=== PATIENT | male | born 1955 | race Caucasian/White ===

== ENCOUNTER → 2016-06-10 | Outpatient (CLI) | payer OTHER ==
[~2016-06-10] MED LIST: IOPAMIDOL (ISOVUE-300) 50 ML VIAL IV ONE
--- NOTE | 2016-06-10 18:48 | CT ---
CT Scan of the Urinary Tract (Abdomen and Pelvis Without Contrast) Clinical Indications: Gross hematuria after falling. Technique: Multidetector helical CT imaging was performed from the kidneys to the urinary bladder wi thout contrast. Dose reduction techniques were utilized. Findings: Abdomen: No calcifications are found within the kidneys, ureters and bladder. No evidence of hydro nephrosis. Perirenal fat is not edematous. The visualized liver and spleen are normal in appearance . The gallbladder, pancreas and adrenals demonstrate no significant findings. The aorta tapers norm ally. A couple of calcifications are found within a slender appendix, with no edema whatsoever. Inter vertebral disks appear degenerated at L3-L4, L4-L5, and L5-S1, with bilateral facet arthropathy at th ose levels. 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 No compression fracture is identified. Pelvis: The prostate gland is somewhat enlarged, with no distention of the urinary bladder. Impression: 1. No evidence of stone in the urinary tract. 2. Enlarged prostate gland. 3. Disk degeneration and facet arthropathy of lower lumbar spine. Attention: This CT examination is specifically designed to evaluate patients who are clinically susp ected of having acute obstructive uropathy. This examination does not use radiographic contrast, and as such, provides only a limited evaluation of the abdomen, pelvis and retroperitoneum. If there i s further clinical suspicion for pathological conditions other than obstructive uropathy, a complete CT evaluation of the abdomen and pelvis utilizing intravenous, oral, and rectal contrast should be co nsidered. I telephoned results to Dr. Torres Briscoe at 1840 hours.
== END ==
LOC: FIMAGING 17:13
PROVIDERS: ATTEND Internal Medicine
DX: R31.0 Gross hematuria (principal); Z87.442 Personal history of urinary calculi; N40.0 Benign prostatic hyperplasia without lower urinary tract symptoms; W19.XXXA Unspecified fall, initial encounter; M51.36 Other intervertebral disc degeneration, lumbar region
CPT/HCPCS: Q9967

== ENCOUNTER 2017-04-23 17:21 | Emergency (ER) | payer OTHER ==
[2017-04-23 17:31] VITALS: TEMP 97.3
--- NOTE | 2017-04-23 17:51 | CPEKG ---
Heart Rate: 59 RR Interval: 1017 P-R Interval: 168 QRSD Interval: 100 QT Interval: 408 QTC Interval: 405 P Nedrow: -19 QRS Nedrow: 57 T Wave Nedrow: 19 EKG Severity - NORMAL ECG - EKG Impression: SINUS RHYTHM Electronically Signed By: Pastor Jacobo 23-Apr-2017 18:13:44
[2017-04-23] MEDS ORDERED: ONDANSETRON 4 MG/2 ML VIAL IVP ONE (18:07)
[2017-04-23] MEDS ORDERED: NS 1,000 ML IV ONE (18:07)
--- NOTE | 2017-04-23 18:12 | EDPHY ---
H & P Stated Complaint: FEELING DIZZY/NAUSEATED ALL DAY/TROUBLE WITH PLUGGED R EAR Time Seen by Provider: 04/23/17 17:48 HPI/ROS: CHIEF COMPLAINT: Woozy, left arm tingling HISTORY OF PRESENT ILLNESS: Patient is a 61-year-old obese man with history of hypertension who comes to the emergency department complaining that he is feeling woozy for the last month as well as having right ear fullness and slight nausea and then today developed some tingling in his left arm and bilateral face. 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 He tried wiggling his ear which made him vertiginous. He followed up with his primary who sent him to ENT. ENT he did not find anything abnormal. His symptoms seemed to decreased. He then had a left upper molar pulled a week later and was started on clindamycin. He took 4 doses but it made him extremely nauseous and vertiginous again. He stopped taking it. He has not had any fevers. He continued to have intermittent episodes of feeling woozy and lightheaded and having right ear pressure until today and he also developed some tingling in his left hand and face bilaterally. This does not have any history of cardiac disease. No focal weakness or numbness. REVIEW OF SYSTEMS: Constitutional: denies: chills, fever, recent illness, recent injury EENTM: denies: blurred vision, double vision, nose congestion Respiratory: denies: cough, shortness of breath Cardiac: See HPI Gastrointestinal/Abdominal: denies: abdominal pain, diarrhea, nausea, vomiting, blood streaked stools Genitourinary: denies: dysuria, frequency, hematuria, pain Musculoskeletal: denies: joint pain, muscle pain Skin: denies: lesions, rash, jaundice, bruising Neurological: denies: See HPI Hematologic/Lymphatic: denies: blood clots, easy bleeding, easy bruising Immunologic/allergic: denies: HIV/AIDS, transplant EXAM: GENERAL: Well-appearing, obese in no acute distress. HEAD: Atraumatic, normocephalic. EYES: Pupils equal round and reactive to light, extraocular movements intact, sclera anicteric, conjunctiva are normal. ENT: TMs normal, nares patent, oropharynx clear without exudates. Moist mucous membranes. NECK: Normal range of motion, supple without lymphadenopathy or JVD. LUNGS: Breath sounds clear to auscultation bilaterally and equal. No wheezes rales or rhonchi. HEART: Regular rate and rhythm without murmurs, rubs or gallops. ABDOMEN: Soft, nontender, normoactive bowel sounds. No guarding, no rebound. No masses appreciated. BACK: No CVA tenderness, no spinal tenderness, step-offs or deformities EXTREMITIES: Normal range of motion, no pitting or edema. No clubbing or cyanosis. NEUROLOGICAL: Cranial nerves II through XII grossly intact. Normal speech, normal gait. 5/5 strength, normal movement in all extremities, normal sensation PSYCH: Normal mood, normal affect. SKIN: Warm, dry, normal turgor, no visible rashes or lesions. Source: Patient Exam Limitations: No limitations - Personal History Current Tetanus/Diphtheria Vaccine: Yes - Medical/Surgical History Hx Asthma: No Hx Chronic Respiratory Disease: No Hx Diabetes: No Hx Cardiac Disease: No Hx Renal Disease: No Hx Cirrhosis: No Hx Alcoholism: No Hx HIV/AIDS: No Hx Splenectomy or Spleen Trauma: No Other PMH: HTN - Social History Smoking Status: Never smoked Alcohol Use: Sober Drug Use: None Constitutional: Initial Vital Signs Temperature (C) 36.3 C 04/23/17 17:29 Heart Rate 54 L 04/23/17 17:29 Respiratory Rate 18 04/23/17 17:29 Blood Pressure 156/89 H 04/23/17 17:29 O2 Sat (%) 95 04/23/17 17:29 O2 Delivery Mode Room Air Allergies/Adverse Reactions: lisinopril [Lisinopril] Allergy (Intermediate, Verified 04/23/17 17:28) Tingling of mouth/throat Home Medications: Medication Instructions Recorded Metoprolol Succinate 04/23/17 Omeprazole 04/23/17 Valsartan-Hctz 160-12.5 mg Tab 04/23/17 Medical Decision Making - Diagnostics EKG Interpretation: An EKG obtained and was read and documented in trace view. Please see trace view for full reading and report. Sinus rhythm, no acute ischemic changes Imaging Results: Imaging Impressions Head CT 04/23/17 18:07 Impression: CT head: 1. No acute abnormality. 2. Mild generalized volume loss. 3. Moderate supratentorial small vessel ischemic changes. CTAs: 1. No cervical or intracranial vascular abnormalities. Dr. Ace discussed these findings by telephone with Dr. JASON KIM on at 1935 hours. Chest X-Ray 04/23/17 18:08 Impression: 1. Suspect COPD without pneumonia. 2. Cardiomegaly without failure. Head CTA 04/23/17 18:12 Impression: CT head: 1. No acute abnormality. 2. Mild generalized volume loss. 3. Moderate supratentorial small vessel ischemic changes. CTAs: 1. No cervical or intracranial vascular abnormalities. Dr. Ace discussed these findings by telephone with Dr. JASON KIM on at 1935 hours. Neck CTA 04/23/17 18:12 Impression: CT head: 1. No acute abnormality. 2. Mild generalized volume loss. 3. Moderate supratentorial small vessel ischemic changes. CTAs: 1. No cervical or intracranial vascular abnormalities. Dr. Ace discussed these findings by telephone with Dr. JASON KIM on at 1935 hours. Imaging: Discussed imaging studies w/ gunite nozzle operator Radiologist ED Course/Re-evaluation: 7:50 p.m. the patient is feeling much better with hydration and medication. He feels ready to go home. I offered admission for further cardiac rule out. He declines. We agreed on a 4 hour repeat troponin. 10:50 p.m. the patient remains well. He continues to deny chest pain. He does still feels slightly woozy. He does feel better after hydration. He is eager to go home. He declines further workup or testing. I encouraged rest and hydration at home. We also discussed strict return precautions. Differential Diagnosis: Partial list of the Differential diagnosis considered include but were not limited to; viral syndrome acute coronary disease, dehydration and although unlikely based on the history and physical exam, I also considered meningitis, sepsis pneumonia, urinary tract infection, influenza, PE. I discussed these differential diagnoses and the plan with the patient as well as the usual and expected course. The patient understands that the diagnosis is provisional and that in medicine we are not always correct and that further workup is often warranted. Usual and customary warnings were given. All of the patient's questions were answered. The patient was instructed to return to the emergency department should the symptoms at all worsen or return, otherwise to followup with the physician as we discussed. - Data Points Laboratory Results: Laboratory Results 04/23/17 17:50 04/23/17 17:50 04/23/17 04/23/17 04/23/17 21:43 19:20 17:50 WBC RBC Hgb Hct MCV MCH MCHC RDW Plt Count MPV Neut % (Auto) Lymph % (Auto) Harney % (Auto) Eos % (Auto) Baso % (Auto) Nucleat RBC Rel Count Absolute Neuts (auto) Absolute Lymphs (auto) Absolute Monos (auto) Absolute Eos (auto) Absolute Basos (auto) Absolute Nucleated RBC Immature Gran % Immature Gran # PT INR APTT D-Dimer Sodium 133 mEq/L L mEq/L (134-144) Potassium 4.0 mEq/L mEq/L (3.5-5.2) Chloride 98 mEq/L mEq/L (97-110) Carbon Dioxide 24 mEq/l mEq/l (22-31) Anion Gap 11 mEq/L mEq/L (8-16) BUN 14 mg/dL mg/dL (7-23) Creatinine 0.7 mg/dL mg/dL (0.7-1.3) Estimated GFR > 60 Glucose 112 mg/dL H mg/dL (70-100) Calcium 9.2 mg/dL mg/dL (8.5-10.4) Total Bilirubin 0.5 mg/dL mg/dL (0.1-1.4) Conjugated Bilirubin 0.1 mg/dL mg/dL (0.0-0.5) Unconjugated Bilirubin 0.4 mg/dL mg/dL (0.0-1.1) AST 29 IU/L IU/L (17-59) ALT 41 IU/L IU/L (21-72) Alkaline Phosphatase 45 IU/L IU/L (38-126) Troponin I < 0.012 ng/mL ng/mL < 0.012 ng/mL ng/mL (0.000-0.034) (0.000-0.034) Total Protein 6.8 g/dL g/dL (6.3-8.2) Albumin 4.3 g/dL g/dL (3.5-5.0) Urine Color PALE YELLOW Urine Appearance CLEAR Urine pH 5.0 (5.0-7.5) Ur Specific [place] 1.019 (1.002-1.030) Urine Protein NEGATIVE (NEGATIVE) Urine Ketones NEGATIVE (NEGATIVE) Urine Blood 1+ H (NEGATIVE) Urine Nitrate NEGATIVE (NEGATIVE) Urine Bilirubin NEGATIVE (NEGATIVE) Urine Urobilinogen NEGATIVE EU EU (0.2-1.0) Ur Leukocyte Esterase NEGATIVE (NEGATIVE) Urine RBC 3-5 /hpf H /hpf (0-3) Urine WBC 1-3 /hpf /hpf (0-3) Ur Epithelial Cells NONE SEEN /lpf /lpf (NONE-1+) Urine Glucose NEGATIVE (NEGATIVE) 04/23/17 04/23/17 17:50 17:50 WBC 6.43 10^3/uL 10^3/uL (3.80-9.50) RBC 4.63 10^6/uL 10^6/uL (4.40-6.38) Hgb 15.7 g/dL g/dL (13.7-17.5) Hct 42.5 % % (40.0-51.0) MCV 91.8 fL fL (81.5-99.8) MCH 33.9 pg pg (27.9-34.1) MCHC 36.9 g/dL H g/dL (32.4-36.7) RDW 12.2 % % (11.5-15.2) Plt Count 204 10^3/uL 10^3/uL (150-400) MPV 9.3 fL fL (8.7-11.7) Neut % (Auto) 59.4 % % (39.3-74.2) Lymph % (Auto) 25.3 % % (15.0-45.0) Harney % (Auto) 12.9 % % (4.5-13.0) Eos % (Auto) 1.6 % % (0.6-7.6) Baso % (Auto) 0.6 % % (0.3-1.7) Nucleat RBC Rel Count 0.0 % % (0.0-0.2) Absolute Neuts (auto) 3.82 10^3/uL 10^3/uL (1.70-6.50) Absolute Lymphs (auto) 1.63 10^3/uL 10^3/uL (1.00-3.00) Absolute Monos (auto) 0.83 10^3/uL H 10^3/uL (0.30-0.80) Absolute Eos (auto) 0.10 10^3/uL 10^3/uL (0.03-0.40) Absolute Basos (auto) 0.04 10^3/uL 10^3/uL (0.02-0.10) Absolute Nucleated RBC 0.00 10^3/uL 10^3/uL (0-0.01) Immature Gran % 0.2 % % (0.0-1.1) Immature Gran # 0.01 10^3/uL 10^3/uL (0.00-0.10) PT 13.4 SEC SEC (12.0-15.0) INR 1.03 (0.83-1.16) APTT 27.7 SEC SEC (23.0-38.0) D-Dimer < 0.27 ug/mLFEU ug/mLFEU (0.00-0.50) Sodium Potassium Chloride Carbon Dioxide Anion Gap BUN Creatinine Estimated GFR Glucose Calcium Total Bilirubin Conjugated Bilirubin Unconjugated Bilirubin AST ALT Alkaline Phosphatase Troponin I Total Protein Albumin Urine Color Urine Appearance Urine pH Ur Specific [place] Urine Protein Urine Ketones Urine Blood Urine Nitrate Urine Bilirubin Urine Urobilinogen Ur Leukocyte Esterase Urine RBC Urine WBC Ur Epithelial Cells Urine Glucose Medications Given: Discontinued Medications Sodium Chloride (Ns) 1,000 mls @ 0 mls/hr IV ONCE ONE; Wide Open PRN Reason: Protocol Stop: 04/23/17 18:08 Last Admin: 04/23/17 18:30 Dose: 1,000 mls Ondansetron HCl (Zofran) 4 mg IVP EDNOW ONE Stop: 04/23/17 18:08 Last Admin: 04/23/17 18:31 Dose: 4 mg Departure - Departure Disposition: Home, Routine, Self-Care Clinical Impression: Lightheaded, Paresthesia of left arm Condition: Fair Instructions: Paresthesia (ED), Lightheadedness (ED) Referrals: Torres Briscoe MD [Primary Care Provider] - As per Instructions
[2017-04-23 18:16] LABS: % IMMATURE GRANULYOCYTES 0.2 % (0.0-1.1); ABSOLUTE IMMATURE GRANULOCYTES 0.01 10^3/uL (0.00-0.10); ADD DIFF? NO; ADD MORPH? NO; ADD SCAN? NO; ATYPICAL LYMPHOCYTE FLAG 10 (0-99); FRAGMENT RBC FLAG 0 (0-99); HEMATOCRIT 42.5 % (40.0-51.0); HEMOGLOBIN 15.7 g/dL (13.7-17.5); LEFT SHIFT FLG 0 (0-99); LIPEMIA HEMOLYSIS FLAG 90 (0-99); MEAN CELL HEMOGLOBIN 33.9 pg (27.9-34.1); MEAN CELL HEMOGLOBIN CONCENTR. 36.9 g/dL (32.4-36.7); MEAN CELL VOLUME 91.8 fL (81.5-99.8); MEAN PLATELET VOLUME 9.3 fL (8.7-11.7); PLATELET CLUMPS FLAG 0 (0-99); PLATELET COUNT 204 10^3/uL (150-400); RED BLOOD CELL COUNT 4.63 10^6/uL (4.40-6.38); RED CELL DISTRIBUTION WIDTH 12.2 % (11.5-15.2)
[2017-04-23 18:28] LABS: ALANINE AMINOTRANSFERASE 41 IU/L (21-72); ALBUMIN 4.3 g/dL (3.5-5.0); ALKALINE PHOSPHATASE 45 IU/L (38-126); ANION GAP 11 mEq/L (8-16); ASPARTATE AMINOTRANSFERASE 29 IU/L (17-59); BILIRUBIN,TOTAL 0.5 mg/dL (0.1-1.4); BILIRUBIN-CONJUGATED 0.1 mg/dL (0.0-0.5); BILIRUBIN-UNCONJUGATED 0.4 mg/dL (0.0-1.1); CALCIUM 9.2 mg/dL (8.5-10.4); CARBON DIOXIDE 24 mEq/l (22-31); CHLORIDE 98 mEq/L (97-110); CREATININE 0.7 mg/dL (0.7-1.3); GLOMERULAR FILTRATION RATE > 60; GLUCOSE 112 mg/dL (70-100); SODIUM 133 mEq/L (134-144); TOTAL PROTEIN 6.8 g/dL (6.3-8.2)
[2017-04-23 18:38] LABS: TROPONIN I < 0.012 ng/mL (0.000-0.034)
[2017-04-23 18:52] LABS: APTT 27.7 SEC (23.0-38.0); INR 1.03 (0.83-1.16); PROTIME(PATIENT) 13.4 SEC (12.0-15.0)
[2017-04-23] MEDS ORDERED: IOPAMIDOL (ISOVUE 370) 100 ML BTL IV ONE (18:53)
[2017-04-23 19:38] LABS: COLOR PALE YELLOW; LEUKOCYTE ESTERASE,URINE NEGATIVE (NEGATIVE); NITRITE,URINE NEGATIVE (NEGATIVE)
[2017-04-23 20:18] VITALS: RESP 16
[2017-04-23 23:10] VITALS: PULSE 72; O2SAT 96
[2017-04-23 23:11] VITALS: BP 112/86
== END 2017-04-23 23:12 | disposition home or self-care (01) ==
DX: R20.2 Paresthesia of skin (principal); R42 Dizziness and giddiness; I10 Essential (primary) hypertension; E86.9 Volume depletion, unspecified
CPT/HCPCS: 96374; J2405; Q9967